=== PATIENT | male | born 1950 | race Caucasian/White ===

== ENCOUNTER → 2023-11-11 | Outpatient (REF) | payer MEDICARE, MEDICAID | LOC: M LAB REF 14:37 | PROVIDERS: ATTEND Nurse Practitioner Family | DX: R33.9 Retention of urine, unspecified (principal); R31.21 Asymptomatic microscopic hematuria ==

== ENCOUNTER → 2024-07-23 | Outpatient (REF) | payer MEDICARE, MEDICAID ==
[2024-07-24 13:27] LABS: BACTERIA, URINE AUTO NEGATIVE (NEGATIVE); CALCIUM OXALATE CRYSTALS MODERATE; MUCUS, URINE SMALL (NEGATIVE); RBC, URINE AUTO 2 /HPF (0-3); SQUAMOUS EPITHELIAL CELL UR AU 0 /HPF (0-6); WBC, URINE AUTO 2 /HPF (0-3)
== END ==
LOC: M LAB REF 12:25
PROVIDERS: ATTEND Urology
DX: Z87.440 Personal history of urinary (tract) infections (principal)